=== PATIENT | male | born 1975 | race Caucasian/White ===

== ENCOUNTER 2018-05-21 22:31 | Emergency (ER) | payer SELFPAY ==
[2018-05-21 22:38] VITALS: BP 158/96; PULSE 84; RESP 18; TEMP 98.1; O2SAT 98
--- NOTE | 2018-05-22 00:31 | C.PDOC ---
History Of Present Illness The patient reports that he slipped from the second story and twisted the right ankle at 6pm today. Now complains of pain and swelling to the right ankle. The patient reports that he was not able to ambulate after the injury. denies numbess, weakness, or other injuries. Time Seen by Provider: 05/21/18 22:40 Chief Complaint (Nursing): Lower Extremity Problem/Injury History Per: Patient History/Exam Limitations: no limitations Severity: Mild Pain Scale Rating Of: 5 Past Medical History Vital Signs: Last Vital Signs Temp 98.1 F 05/21/18 22:33 Pulse 84 05/21/18 22:33 Resp 18 05/21/18 22:33 BP 158/96 H 05/21/18 22:33 Pulse Ox 98 05/22/18 05:13 - Medical History PMH: HTN (NO MEDS PER PT) Denies: Chronic Kidney Disease Family History: States: No Known Family Hx - Social History Hx Tobacco Use: No Hx Alcohol Use: Yes Hx Substance Use: No - Immunization History Hx Tetanus Toxoid Vaccination: No Hx Influenza Vaccination: No Hx Pneumococcal Vaccination: No Review Of Systems Constitutional: Negative for: Fever, Weakness Cardiovascular: Negative for: Chest Pain Respiratory: Negative for: Shortness of Breath Gastrointestinal: Negative for: Abdominal Pain Musculoskeletal: Positive for: Foot Pain Skin: Negative for: Rash, Bruising Neurological: Negative for: Weakness, Numbness Physical Exam - Physical Exam Appears: Non-toxic, No Acute Distress Skin: Warm, No Rash Head: Atraumatic, Normacephalic Eye(s): bilateral: Normal Inspection, PERRL, EOMI Oral Mucosa: Moist Neck: Normal ROM Extremity: Normal ROM, Capillary Refill (< 2 sec), Swelling ((+) moderate swelling and tenderness to the lateral malleolus) Pulses: Left Dorsalis Pedis: Normal, Right Dorsalis Pedis: Normal Neurological/Psych: Oriented x3, Normal Speech, Normal Motor, Normal Sensation Gait: Steady ED Course And Treatment O2 Sat by Pulse Oximetry: 98 (on RA) Pulse Ox Interpretation: Normal - Other Rad ankle/foot Interpretation: Moderate swelling. No acute fracture or dislocation. Medical Decision Making Medical Decision Making: will splint the leg as there may be an occult. Posterior Splint applied by wildlife technician and checked by me. Crutch training given. Disposition - Disposition Referrals: Cody Encarnacion MD [Staff Provider] - Disposition: HOME/ ROUTINE Disposition Time: 00:36 Condition: GOOD Additional Instructions: Follow up with the Orthopedist doctor/clinic within 1-2 days. Return if worsened. Prescriptions: Acetaminophen [Tylenol] 325 mg PO Q6 PRN #30 tab PRN Reason: Pain, Mild (1-3) Ibuprofen [Motrin] 1 tab PO TID PRN #30 tab PRN Reason: Pain Instructions: Ankle Sprain (DC) Forms: [employer] / [employer] (Macedonian), Work Excuse Print Language: ALBANIAN - Clinical Impression Clinical Impression: Ankle sprain
--- NOTE | 2018-05-22 09:38 | RAD ---
Date of service: 05/21/2018 PROCEDURE: Right Foot Radiographs. HISTORY: r/o fx COMPARISON: None. FINDINGS: BONES: No acute fracture or destructive bony lesion identified. JOINTS: No subluxation or dislocation identified. SOFT TISSUES: Normal. OTHER FINDINGS: None. IMPRESSION: Unremarkable right foot radiographs.
--- NOTE | 2018-05-22 09:39 | RAD ---
Date of service: 05/21/2018 PROCEDURE: Right Ankle Radiographs. HISTORY: r/o fx COMPARISON: None FINDINGS: BONES: No acute fracture or destructive bony lesion identified. JOINTS: No subluxation or dislocation. Ankle mortise appears normal. SOFT TISSUES: Limited soft tissue edema is seen at the anterior ankle. OTHER FINDINGS: None. IMPRESSION: No acute fracture or dislocation identified. Limited edema is seen anterior ankle soft tissues.
== END 2018-05-22 00:44 | disposition home or self-care (01) ==
LOC: C.ER 22:31
DX: S93.401A Sprain of unspecified ligament of right ankle, initial encounter (principal); W17.89XA Other fall from one level to another, initial encounter